=== PATIENT | female | born 1940 | race Caucasian/White ===

== ENCOUNTER → 2018-02-19 | Outpatient (CLI) | payer OTHER, MEDICARE ==
[~2018-02-19] MED LIST: BP PILL; NORCO 5-325 TA1 EACH PO; NORFLEX100 MG PO; THYROID MED
== END ==
LOC: M.RAD 14:25
DX: K44.9 Diaphragmatic hernia without obstruction or gangrene (principal); R05 Cough

== ENCOUNTER → 2018-09-20 | Outpatient (CLI) | payer OTHER, MEDICARE | LOC: M.ULTRA 09:35 | DX: E04.1 Nontoxic single thyroid nodule (principal); R13.10 Dysphagia, unspecified ==

== ENCOUNTER → 2019-01-14 | Outpatient (CLI) | payer OTHER, MEDICARE ==
[2019-01-14 16:02] LABS: ABSOLUTE EOSINOPHILS 0.3 thou/uL (0.0-0.7); ABSOLUTE LYMPHOCYTES 2.6 thou/uL (0.8-5.3); ABSOLUTE MONOCYTES 0.5 thou/uL (0.0-1.2); BASOPHILS 0.3 %; EOSINOPHILS 4.4 %; HEMATOCRIT 24.9 % (37.0-47.0); HEMOGLOBIN 7.3 gm/dL (12.0-15.0); LYMPHOCYTES 40.1 %; MCHC 29.3 g/dL (28.0-37.0); MCV 51.3 fL (80.0-100.0); MONOCYTES 7.8 %; MPV 8.2 fl. (7.2-11.1); NUCLEATED RBCS 0 /100WBC; PLATELET COUNT* 417 thou/uL (150-400); POLYS 47.4 %; RBC 4.85 mil/uL (4.20-5.00); RDW-CV 21.2 % (10.5-14.5); WBC 6.4 thou/uL (4.0-11.0)
[2019-01-14 16:02] LABS: URINE BILIRUBIN NEGATIVE (Negative); URINE BLOOD NEGATIVE (Negative); URINE CLARITY CLEAR; URINE COLOR YELLOW; URINE GLUCOSE-RANDOM NEGATIVE (Negative); URINE KETONES NEGATIVE (Negative); URINE LEUKOCYTES 1+ (Negative); URINE NITRITE NEGATIVE (Negative); URINE PROTEIN NEGATIVE (Negative); URINE UROBILINOGEN 0.2 E.U./dl (0.2-1.0)
[2019-01-14 16:10] LABS: CRYSTALS None Seen /LPF (None Seen); MUCUS None Seen strn/LPF (None Seen); SQUAMOUS 4-10 Moderate /LPF (0-3)
[2019-01-14 16:11] LABS: BACTERIA 1-9 Few /HPF (None Seen); CASTS None Seen /LPF (None Seen); URINE RBC None Seen /HPF (0-2); URINE WBC 0-5 Rare /HPF (0-5)
[2019-01-14 16:20] LABS: ALBUMIN 3.5 g/dL (3.4-5.0); CALCIUM 8.8 mg/dL (8.5-10.1); CREATININE 0.9 mg/dL (0.6-1.3); POTASSIUM 3.5 mmol/L (3.5-5.1); TOTAL BILIRUBIN 0.3 mg/dL (<0.1-1.0); TOTAL PROTEIN 7.5 g/dL (6.4-8.2)
[2019-01-14 16:22] LABS: PLATELET ESTIMATE ADEQUATE
[2019-01-14 16:23] LABS: HYPOCHROMASIA 3+; MICROCYTES 3+; TARGET CELLS Occasional
[2019-01-14 16:24] LABS: ANISOCYTOSIS 2+; OVALOCYTES 1+
[2019-01-14 16:28] LABS: % SATURATION 3 % (20-39); IRON 14 ug/dL (50-175)
== END ==
LOC: M.LAB 15:29
PROVIDERS: Family Medicine
DX: J18.9 Pneumonia, unspecified organism (principal); K44.9 Diaphragmatic hernia without obstruction or gangrene; I10 Essential (primary) hypertension; R53.83 Other fatigue; R42 Dizziness and giddiness; D64.9 Anemia, unspecified

== ENCOUNTER → 2019-01-28 | Outpatient (CLI) | payer OTHER, MEDICARE ==
--- NOTE | 2019-02-03 08:08 | PF ---
[address] [address] PULMONARY FUNCTION REPORT Name: MANSOOR LAZARO Room: [facility] Reena.Yolande.#: [id number] Admission: 01/28/19 Attend Phys: Khushi Aly MD Discharge: Date of : 40 Report #: [id number] THIS REPORT FOR: //name// CC: Khushi Aly DATE OF SERVICE: 01/28/2019 PULMONARY FUNCTION TESTS: REQUESTING PHYSICIAN: Dr. Khushi Aly. Spirometry was done. FEV1 was mildly diminished at 1.45, which was 76% of predicted. FVC was normal. FEV1/FVC ratio 64%. Mid flows were severely decreased. After inhaled bronchodilator, there was no significant improvement seen in the FEV1 or FVC. Mid flows, however, did improve by 14%. Lung volumes by plethysmography reveal a normal TLC and residual volume. Diffusion capacity was normal. IMPRESSION: Mild airways obstruction. No evidence of air trapping or hyperinflation. Diffusion capacity is normal. There was some improvement seen at the level of small airways after inhaled bronchodilator. <ELECTRONICALLY SIGNED> By: Marisol Sandoval MD 02/03/19 [id number] Sandoval MD /nt
== END ==
LOC: M.PUL 10:45
DX: J98.8 Other specified respiratory disorders (principal)

== ENCOUNTER → 2019-06-13 | Outpatient (CLI) | payer OTHER, MEDICARE | LOC: M.RAD 11:03 | DX: M19.072 Primary osteoarthritis, left ankle and foot (principal); M81.8 Other osteoporosis without current pathological fracture ==

== ENCOUNTER → 2019-06-20 | Outpatient (CLI) | payer OTHER, MEDICARE ==
[2019-06-20 13:31] LABS: ABSOLUTE EOSINOPHILS 0.3 thou/uL (0.0-0.7); ABSOLUTE LYMPHOCYTES 2.6 thou/uL (0.8-5.3); ABSOLUTE MONOCYTES 0.6 thou/uL (0.0-1.2); ABSOLUTE NEUTROPHILS 5.8 thou/uL (1.6-8.1); BASOPHILS 0.5 %; EOSINOPHILS 2.7 %; HEMATOCRIT 37.2 % (37.0-47.0); MCH 20.7 pg (26.0-34.0); MCHC 32.3 g/dL (28.0-37.0); MCV 64.2 fL (80.0-100.0); MONOCYTES 6.3 %; NUCLEATED RBCS 0 /100WBC; PLATELET COUNT* 344 thou/uL (150-400); POLYS 62.5 %; RDW-CV 16.1 % (10.5-14.5); WBC 9.3 thou/uL (4.0-11.0)
[2019-06-20 13:40] LABS: CALCIUM 9.5 mg/dL (8.5-10.1); CREATININE 0.9 mg/dL (0.6-1.3); TOTAL BILIRUBIN 0.5 mg/dL (<0.1-1.0); TOTAL PROTEIN 7.7 g/dL (6.4-8.2)
[2019-06-20 13:52] LABS: ANISOCYTOSIS 2+; MICROCYTES 2+; PLATELET ESTIMATE ADEQUATE; POIKILOCYTOSIS 1+
[2019-06-20 14:37] LABS: ESR (SEDRATE) 10 mm/hr (0-30)
== END ==
LOC: M.LAB 13:10
PROVIDERS: Internal Medicine Gastroenterology
DX: D50.9 Iron deficiency anemia, unspecified (principal)

== ENCOUNTER → 2019-09-15 | Outpatient (CLI) | payer OTHER, MEDICARE | LOC: M.RAD 14:00 | DX: M81.0 Age-related osteoporosis without current pathological fracture (principal) ==